=== PATIENT | male | born 1965 | race Caucasian/White ===

== ENCOUNTER 2018-12-06 20:49 | Inpatient (IN) | payer MEDICAID, OTHER ==
[~2018-12-06] VITALS: Ht 167.6 cm; Wt 107.0 kg
[~2018-12-06 20:49] MED LIST: ATEN50TA PO; COMBIV IH; GUAI600T26 PO; LEVO500T2 PO; LISI-604 PO
[2018-12-06] MEDS ORDERED: SODIUM CHLORIDE 0.9% 1,000 ML IV ONE (23:43)
[2018-12-06] MEDS ORDERED: ONDANSETRON HCL 4MG/2ML INJ IV STA (23:43)
[2018-12-06] MEDS ORDERED: MORPHINE SULFATE 4 MG/ML CPJ (NOT FOR IM USE) IV STA (23:43)
[2018-12-06] MEDS ORDERED: FAMOTIDINE 20MG/2ML VIAL IV ONE (23:45)
[2018-12-07] VITALS (12 sets, daily range): BP systolic 119–147; BP diastolic 60–98
[2018-12-07 00:02] LABS: BASOPHILS % 1.1 % (0.0-2.0); EOSINOPHILS % 1.6 % (0.0-5.0); HEMATOCRIT. 39.3 % (42.0-52.0); HEMOGLOBIN. 13.2 g/dL (14.0-18.0); MEAN CORPUSCULAR HEMOGLOBIN 28.2 pg (28.0-32.0); MEAN CORPUSCULAR VOLUME 84.3 fL (80.0-94.0); MEAN PLATELET VOLUME 9.2 fl (7.4-10.4); NEUTROPHILS % 77.3 % (40.0-76.0); PLATELET 144 x1000/uL (130-400); RED BLOOD CELL COUNT 4.66 mill/uL (4.7-6.1); RED CELL DISTRIBUTION WIDTH 18.8 % (11.6-14.6)
[2018-12-07 00:06] LABS: CHLORIDE 110 mEq/L (98-107)
[2018-12-07 00:10] LABS: ETHANOL BLOOD < 10 mg/dL; INR 1.3; PARTIAL THROMBOPLASTIN TIME 27.7 sec (23.4-31.0); PROTHROMBIN TIME 12.7 sec (9.6-11.0)
[2018-12-07 00:38] LABS: CLARITY URINE CLEAR (CLEAR); COLOR URINE YELLOW (YELLOW); KETONES URINE NEGATIVE (NEGATIVE); LEUKOCYTE ESTERASE URINE NEGATIVE (NEGATIVE); NITRITE URINE NEGATIVE (NEGATIVE); OCCULT BLOOD URINE NEGATIVE (NEGATIVE); PH URINE 5.5 (4.5-8.0); PROTEIN URINE 3+ (NEGATIVE); SPECIFIC GRAVITY URINE 1.019 (1.005-1.030)
[2018-12-07 00:47] LABS: *AMPHETAMINES SCREEN URINE NEGATIVE (NEGATIVE); *BARBITURATES SCREEN URINE NEGATIVE (NEGATIVE); *BENZODIAZEPINES SCREEN URINE NEGATIVE (NEGATIVE); *COCAINE SCREEN URINE NEGATIVE (NEGATIVE); METHADONE URINE SCREEN NEGATIVE (NEGATIVE); OPIATES URINE SCREEN NEGATIVE (NEGATIVE)
[2018-12-07 00:48] LABS: CANNABINOID URINE SCREEN NEGATIVE (NEGATIVE); PHENCYCLIDINE URINE SCREEN NEGATIVE (NEGATIVE)
[2018-12-07] MEDS ORDERED: FUROSEMIDE 40MG/4ML VIAL IVP ONE (01:00)
[2018-12-07] MEDS ORDERED: ASPIRIN 325MG EC TABLET PO ONE (01:00)
[2018-12-07] MEDS ORDERED: ENOXAPARIN 100MG/ML SYR SUBCUT ONE (01:15)
[2018-12-07] MEDS ORDERED: ASPI-1393 PO (01:32)
[2018-12-07] MEDS ORDERED: METO100T16 MT (01:37)
[2018-12-07] MEDS ORDERED: LISI40TA4 PO (01:37)
[2018-12-07] MEDS ORDERED: ATOR40TA70 MT (01:37)
[2018-12-07] MEDS ORDERED: SPIR25TA6 MT (01:38)
[2018-12-07] MEDS ORDERED: ENOXAPARIN 100MG/ML SYR SUBCUT NR (03:30)
[2018-12-07] MEDS ORDERED: ONDANSETRON HCL 4MG/2ML INJ IV PRN (08:30)
[2018-12-07] MEDS: HYDROCODONE/ACETAMINOPHEN 5/325MG TABLET PO PRN ×2 (09:57→17:42)
[2018-12-07] MEDS ORDERED: FUROSEMIDE 40MG/4ML VIAL IVP SCH (12:00)
[2018-12-07] MEDS ORDERED: ACETAMINOPHEN 325MG TABLET PO PRN (12:30)
[2018-12-07] MEDS ORDERED: IPRATROPIUM/ALBUTEROL 0.5-3(2.5)MG/3ML NEB INH PRN (12:30)
[2018-12-07] MEDS ORDERED: LORAZEPAM 0.5MG TABLET PO PRN (12:30)
[2018-12-07] MEDS ORDERED: CLONIDINE 0.1MG TABLET PO PRN (12:30)
[2018-12-07] MEDS: ATORVASTATIN CALCIUM 40MG TABLET PO SCH (12:45)
[2018-12-07 13:53] LABS: PHOSPHORUS 5.4 mg/dL (2.5-4.9)
[2018-12-07 13:58] LABS: CREATINE KINASE MB FRACTION 2.5 ng/mL (0.5-3.6)
[2018-12-07] MEDS ORDERED: POTASSIUM CHLORIDE 20MEQ TABLET SR PO NR (15:00)
[2018-12-07] MEDS: AMLODIPINE 2.5MG TABLET PO SCH ×2 (15:47→21:00)
[2018-12-07] MEDS: POTASSIUM CHLORIDE 20MEQ TABLET SR PO SCH (17:39)
[2018-12-08] VITALS (11 sets, daily range): BP systolic 128–168; BP diastolic 59–87
[2018-12-08] MEDS: FUROSEMIDE 40MG/4ML VIAL IVP SCH ×2 (00:22→12:38)
[2018-12-08 06:46] LABS: BASOPHILS % 0.7 % (0.0-2.0); EOSINOPHILS % 2.5 % (0.0-5.0); HEMATOCRIT. 38.7 % (42.0-52.0); HEMOGLOBIN. 12.7 g/dL (14.0-18.0); LYMPHOCYTES % 14.5 % (20.0-50.0); MEAN CORPUSCULAR HEMOGLOBIN 28.2 pg (28.0-32.0); MEAN CORPUSCULAR VOLUME 86.2 fL (80.0-94.0); MEAN PLATELET VOLUME 9.7 fl (7.4-10.4); MONOCYTES % 6.7 % (2.0-8.0); NEUTROPHILS % 75.6 % (40.0-76.0); PLATELET 133 x1000/uL (130-400); RED BLOOD CELL COUNT 4.49 mill/uL (4.7-6.1); RED CELL DISTRIBUTION WIDTH 19.2 % (11.6-14.6)
[2018-12-08 07:33] LABS: CREATINE KINASE MB FRACTION 2.5 ng/mL (0.5-3.6)
[2018-12-08] MEDS: POTASSIUM CHLORIDE 20MEQ TABLET SR PO SCH ×2 (08:46→17:07)
[2018-12-08] MEDS: ASPIRIN 81MG EC TABLET PO SCH (08:46)
[2018-12-08] MEDS: ATORVASTATIN CALCIUM 40MG TABLET PO SCH (08:46)
[2018-12-08] MEDS: AMLODIPINE 2.5MG TABLET PO SCH ×2 (08:47→20:54)
[2018-12-08] MEDS ORDERED: LISINOPRIL 40MG TABLET PO SCH (09:00)
[2018-12-08] MEDS: HYDRALAZINE HCL 100MG TABLET PO SCH ×2 (14:08→22:26)
[2018-12-08] MEDS: ENOXAPARIN 30MG/0.3ML SYR SUBCUT SCH (20:56)
[2018-12-09] VITALS (13 sets, daily range): BP systolic 107–144; BP diastolic 51–103
[2018-12-09] MEDS: FUROSEMIDE 40MG/4ML VIAL IVP SCH ×2 (00:25→13:20)
[2018-12-09 07:01] LABS: BASOPHILS % 0.7 % (0.0-2.0); EOSINOPHILS % 1.6 % (0.0-5.0); HEMATOCRIT. 43.5 % (42.0-52.0); HEMOGLOBIN. 14.3 g/dL (14.0-18.0); LYMPHOCYTES % 7.1 % (20.0-50.0); MEAN CORPUSCULAR HEMOGLOBIN 27.6 pg (28.0-32.0); MEAN CORPUSCULAR VOLUME 84.2 fL (80.0-94.0); MEAN PLATELET VOLUME 9.4 fl (7.4-10.4); MONOCYTES % 5.7 % (2.0-8.0); NEUTROPHILS % 84.9 % (40.0-76.0); PLATELET 147 x1000/uL (130-400); RED BLOOD CELL COUNT 5.17 mill/uL (4.7-6.1); RED CELL DISTRIBUTION WIDTH 19.1 % (11.6-14.6)
[2018-12-09] MEDS: HYDRALAZINE HCL 100MG TABLET PO SCH ×3 (07:07→23:08)
[2018-12-09 07:29] LABS: CHLORIDE 103 mEq/L (98-107)
[2018-12-09 07:38] LABS: LDL CHOLESTEROL 74 mg/dL (5-100)
[2018-12-09 07:39] LABS: HDL CHOLESTEROL 43 mg/dL (40-59)
[2018-12-09] MEDS: AMLODIPINE 2.5MG TABLET PO SCH ×2 (09:00→20:43)
[2018-12-09] MEDS: ASPIRIN 81MG EC TABLET PO SCH (09:21)
[2018-12-09] MEDS: POTASSIUM CHLORIDE 20MEQ TABLET SR PO SCH ×2 (09:21→16:45)
[2018-12-09] MEDS: ATORVASTATIN CALCIUM 40MG TABLET PO SCH (09:21)
[2018-12-09] MEDS: ENOXAPARIN 30MG/0.3ML SYR SUBCUT SCH ×2 (09:22→20:42)
[2018-12-10] VITALS (12 sets, daily range): BP systolic 127–152; BP diastolic 51–83
[2018-12-10] MEDS: HYDRALAZINE HCL 100MG TABLET PO SCH ×3 (06:09→21:56)
[2018-12-10] MEDS ORDERED: FUROSEMIDE 40MG TABLET PO SCH (09:00)
[2018-12-10] MEDS: ATORVASTATIN CALCIUM 40MG TABLET PO SCH (09:20)
[2018-12-10] MEDS: ENOXAPARIN 30MG/0.3ML SYR SUBCUT SCH (09:20)
[2018-12-10] MEDS: AMLODIPINE 2.5MG TABLET PO SCH ×2 (09:21→21:56)
[2018-12-10] MEDS: ASPIRIN 81MG EC TABLET PO SCH (09:21)
[2018-12-10] MEDS: POTASSIUM CHLORIDE 20MEQ TABLET SR PO SCH (09:21)
[2018-12-11] VITALS (9 sets, daily range): BP systolic 111–159; BP diastolic 56–88
[2018-12-11] MEDS: HYDRALAZINE HCL 100MG TABLET PO SCH ×2 (05:57→15:06)
[2018-12-11 06:35] LABS: BASOPHILS % 0.7 % (0.0-2.0); EOSINOPHILS % 1.8 % (0.0-5.0); HEMATOCRIT. 45.2 % (42.0-52.0); LYMPHOCYTES % 12.1 % (20.0-50.0); MEAN CORPUSCULAR VOLUME 84.1 fL (80.0-94.0); MEAN PLATELET VOLUME 9.2 fl (7.4-10.4); NEUTROPHILS % 75.4 % (40.0-76.0); PLATELET 165 x1000/uL (130-400); RED BLOOD CELL COUNT 5.37 mill/uL (4.7-6.1); RED CELL DISTRIBUTION WIDTH 19.7 % (11.6-14.6)
[2018-12-11] MEDS ORDERED: SODIUM CHLORIDE 0.45% 1,000 ML IV ONE (07:00)
[2018-12-11 07:04] LABS: CHLORIDE 101 mEq/L (98-107)
[2018-12-11] MEDS: ASPIRIN 81MG EC TABLET PO SCH (09:00)
[2018-12-11] MEDS: AMLODIPINE 2.5MG TABLET PO SCH (09:00)
[2018-12-11] MEDS: ATORVASTATIN CALCIUM 40MG TABLET PO SCH (09:00)
[2018-12-11] MEDS ORDERED: REGADENOSON 0.4 MG/5 ML IV NR (10:30)
[2018-12-11] MEDS ORDERED: REGADENOSON 0.4 MG/5 ML IV ONE (14:01)
== END 2018-12-11 15:10 | disposition home or self-care (01) | DRG 194 ==
LOC: ER 20:49 → 5EST 12-07 01:11 → EDBEDREQTM 12-07 01:14 → EDBEDREQSVC 12-07 01:14 → EDBEDREQ 12-07 01:14 → EDBEDREQDT 12-07 01:14 → ENRESERV 12-07 03:53
PROVIDERS: ADMIT Internal Medicine; ATTEND Internal Medicine
DX: I11.0 Hypertensive heart disease with heart failure (principal); J96.00 Acute respiratory failure, unspecified whether with hypoxia or hypercapnia; E46 Unspecified protein-calorie malnutrition; N17.9 Acute kidney failure, unspecified; I50.43 Acute on chronic combined systolic (congestive) and diastolic (congestive) heart failure; D50.9 Iron deficiency anemia, unspecified; E78.00 Pure hypercholesterolemia, unspecified; R10.13 Epigastric pain; R74.8 Abnormal levels of other serum enzymes; T50.2X5A Adverse effect of carbonic-anhydrase inhibitors, benzothiadiazides and other diuretics, initial encounter; Y92.238 Other place in hospital as the place of occurrence of the external cause; R80.9 Proteinuria, unspecified; R00.1 Bradycardia, unspecified; I08.0 Rheumatic disorders of both mitral and aortic valves; I20.9 Angina pectoris, unspecified; E78.5 Hyperlipidemia, unspecified; E66.9 Obesity, unspecified; J45.909 Unspecified asthma, uncomplicated; I27.21 Secondary pulmonary arterial hypertension; Z79.899 Other long term (current) drug therapy; Z79.82 Long term (current) use of aspirin; Z68.38 Body mass index [BMI] 38.0-38.9, adult
CPT/HCPCS: 36415; 71045; 74176; 78452; 80048; 80061; 80305; 80320; 82550; 82553; 82728; 83036; 83540; 83550; 83735; 83880; 84100; 84145; 84443; 84484; 85379; 93005; 93017; 93306; 93970; 96361; 96372; 96374; 96375; 99285; A9500; J1650; J1940; J2270; J2405; J2785; J3490; J7030; J7040; G0480